=== PATIENT | female | born 1990 | race Asian ===

== ENCOUNTER 2024-07-04 12:05 | Outpatient (CLI) | payer BC, SELFPAY ==
--- NOTE | 2024-07-04 12:15 | CRLHL7_ITS ---
For Patients: As a result of the Century Cures Act, medical imaging exams and procedure reports are released immediately into your electronic medical record. You may view this report before your referring provider. If you have questions, please contact your health care provider. OBSTETRICAL ULTRASOUND FIRST TRIMESTER, 07/04/2024 CLINICAL INDICATION: Dating and viability. LMP: 05/02/2024 CARLOS ALBERTO by LMP: 02/06/2025 Gestational age: 9 weeks 0 days TECHNIQUE: Real-time carvalho-scale imaging of the fetus was performed transabdominal. FINDINGS: CRL: 21 cm, 8 weeks 5 days; CARLOS ALBERTO 02/08/2025 heart rate: 185 BPM, then 176 BPM Gestational sac: 4.3 cm, appears within normal limits Yolk sac: 2.8 mm, appears within normal limits Right ovary: Within normal limits; 2.8 x 1.7 x 2 cm Left ovary: Within normal limits; 3.3 x 1.8 x 2.1 cm, CL COMMENT: Left ovary corpus luteum 2 x 1.5 x 1.9 cm. IMPRESSION: 1. Single living intrauterine with sonographic gestational age of 8 weeks 5 days and a sonographic due date of 02/08/2025. 2. Subchorionic hemorrhage is present measuring 1.7 x 1.7 x 3.1 cm. LUIS EDUARDO MCCLAIN M.D. Diagnostic Radiologist [email or web address] Transcribed: 11:[address]/Dictated by: Luis Eduardo Mcclain MD @ 07/06/2024 8:50:00 PM (Electronically Signed)
== END 2024-07-04 12:06 | disposition home or self-care (01) ==
LOC: US 12:05
PROVIDERS: Visit Provider Registered Nurse
DX: Z34.91 Encounter for supervision of normal pregnancy, unspecified, first trimester (principal); O20.9 Hemorrhage in early pregnancy, unspecified; Z3A.08 8 weeks gestation of pregnancy
CPT/HCPCS: 76801; 82565; 82570; 83020; 83021; 84156; 84450; 84460; 84520; 86592; 86703; 86704; 86706; 86762; 86787; 86803; 86850; 86900; 86901; 87086; 87340; 87491; 87591; 87624; 88142

== ENCOUNTER 2024-07-04 13:02 | Outpatient (CLI) | payer BC, SELFPAY ==
[2024-07-04 22:29] LABS: Chlamydia DNA Amplified* NOT DETECTED (No Detected); GC DNA Amplified* NOT DETECTED (No Detected)
[2024-07-06 15:00] LABS: HPV Source Cervix; HPV, High Risk by TMA Not Detected
== END 2024-07-04 13:03 | disposition home or self-care (01) ==
PROVIDERS: Visit Provider Registered Nurse
DX: Z34.91 Encounter for supervision of normal pregnancy, unspecified, first trimester (principal); O20.9 Hemorrhage in early pregnancy, unspecified; Z3A.08 8 weeks gestation of pregnancy; Z12.4 Encounter for screening for malignant neoplasm of cervix
CPT/HCPCS: 82565; 82570; 83020; 83021; 84156; 84450; 84460; 84520; 85660; 86592; 86703; 86704; 86706; 86762; 86787; 86803; 86850; 86900; 86901; 87086; 87340; 87491; 87591; 87624; 87625; 88141; 88142

== ENCOUNTER 2024-07-30 08:47 | Outpatient (CLI) | payer BC, SELFPAY | END 2024-07-30 08:48 | disposition home or self-care (01) | LOC: NFLDREF 07-31 22:42 | PROVIDERS: Visit Provider Obstetrics & Gynecology | DX: O09.291 Supervision of pregnancy with other poor reproductive or obstetric history, first trimester (principal); R89.9 Unspecified abnormal finding in specimens from other organs, systems and tissues; Z3A.12 12 weeks gestation of pregnancy | CPT/HCPCS: 84450; 84460 ==

== ENCOUNTER 2024-09-10 07:18 | Outpatient (CLI) | payer BC, SELFPAY | END 2024-09-10 07:19 | disposition home or self-care (01) | LOC: US 07:18 | PROVIDERS: Visit Provider Registered Nurse | DX: O09.292 Supervision of pregnancy with other poor reproductive or obstetric history, second trimester (principal); Z3A.18 18 weeks gestation of pregnancy | CPT/HCPCS: 76811; 76817 ==

== ENCOUNTER 2024-09-23 09:23 | Outpatient (CLI) | payer BC, SELFPAY | END 2024-09-23 09:24 | disposition home or self-care (01) | LOC: NFLDREF 09-26 09:52 | PROVIDERS: Visit Provider Obstetrics & Gynecology | DX: O09.292 Supervision of pregnancy with other poor reproductive or obstetric history, second trimester (principal); Z3A.20 20 weeks gestation of pregnancy | CPT/HCPCS: 85520; 85525; 85598; 85610; 85613; 85670; 85730; 86146; 86147 ==

== ENCOUNTER 2024-11-03 08:16 | Outpatient (CLI) | payer BC, SELFPAY ==
--- NOTE | 2024-11-03 08:15 | CRLHL7_ITS ---
For Patients: As a result of the Century Cures Act, medical imaging exams and procedure reports are released immediately into your electronic medical record. You may view this report before your referring provider. If you have questions, please contact your health care provider. INDICATION: IUGR TECHNIQUE: Ultrasound OB pelvis transabdominal. Real-time carvalho-scale imaging of the fetus was performed without stress testing. Umbilical artery Dopplers were performed with color and spectral evaluation. COMPARISON: Ultrasound abdomen 09/10/2024 FINDINGS: Sonographic imaging demonstrates a single living intrauterine gestation. Fetus demonstrates a regular cardiac rate of 141 beats per minute. Fetus has a cephalic orientation. Biometric measurements: Biparietal diameter: 37th percentile. Head circumference: 7.1 percentile. Abdominal circumference: 8.1 percentile. Femur length: 14.3 percentile. Estimated weight: 800 grams, 8.2 percentile. Estimated ultrasound age by today`s measurements is 25 weeks, 5 days. Amniotic fluid volume appears normal, with single deepest pocket measuring 4.5 centimeters. motion, and tone were all observed. breathing movements were not visualized. Cervix is normal and closed measuring 4.4 centimeters. Umbilical artery Doppler demonstrates normal waveforms with S/D ratio of 4.0. IMPRESSION: Moreira intrauterine in cephalic presentation. Cardiac activity is present. Estimated gestational age 26 weeks, 3 days by LMP concordant with biometry. There has been interval growth, but estimated weight is now at 8.2 percentile and abdominal circumference now at 8.1 percentile, consistent with IUGR. Head circumference is 7.1 percentile normal umbilical artery Doppler with S/D ratio within normal limits for age. Biophysical profile score is 6/8 without visualized respiratory activity. Dictated by Dorina German MD @ 11/03/2024 9:42:33 AM (Electronically Signed)
== END 2024-11-03 08:17 | disposition home or self-care (01) ==
LOC: US 08:17
PROVIDERS: Visit Provider Obstetrics & Gynecology
DX: O36.5920 Maternal care for other known or suspected poor fetal growth, second trimester, not applicable or unspecified (principal); Z3A.26 26 weeks gestation of pregnancy
CPT/HCPCS: 76816; 76819; 76820

== ENCOUNTER 2024-11-11 08:16 | Outpatient (CLI) | payer BC, SELFPAY ==
--- NOTE | 2024-11-11 08:15 | CRLHL7_ITS ---
For Patients: As a result of the Cures Act, medical imaging exams and procedure reports are released immediately into your electronic medical record. You may view this report before your referring provider. If you have questions, please contact your health care provider. OB ULTRASOUND LIMITED, 11/11/2024 CLINICAL HISTORY: IUGR. COMPARISON: 11/03/2024, 09/10/2024, 07/04/2024. TECHNIQUE: Real time carvalho scale imaging of the fetus was performed. Transabdominal imaging performed. FINDINGS: LMP: 05/02/2024. CARLOS ALBERTO by LMP: 02/06/2025. GA: 27 weeks, 4 days. Gestation: Single. Cervix: Visualized. Transabdominal measurement 3.4 cm. Positioning: Vertex. Amniotic Fluid: 17.3 cm JUNE. 5.7 cm SDP. Placenta: TA. Placenta Position: Posterior. Dopplers: Heart Rate: 134 bpm. Umbilical Artery 4.2 S/D. IMPRESSION: 1. Umbilical artery S/D ratio 4.2, within normal limits. 2. Amniotic fluid single deepest pocket 5.7 cm. JUNE 17.3 cm. Luis Eduardo White M.D. Diagnostic Radiologist [email or web address] Transcribed: 10:43 am DW/Dictated by: Luis Eduardo White MD @ 11/11/2024 9:39:00 AM (Electronically Signed)
== END 2024-11-11 08:17 | disposition home or self-care (01) ==
LOC: US 08:17
PROVIDERS: Visit Provider Obstetrics & Gynecology
DX: O36.5920 Maternal care for other known or suspected poor fetal growth, second trimester, not applicable or unspecified (principal); Z3A.27 27 weeks gestation of pregnancy
CPT/HCPCS: 76815; 76820

== ENCOUNTER 2024-11-11 10:04 | Outpatient (CLI) | payer BC, SELFPAY ==
[2024-11-11 10:10] VITALS: RESP 16; TEMP 36.8
[2024-11-11 10:24] VITALS: PULSE 77; O2SAT 99
[2024-11-11 10:27] VITALS: BP 106/67; PULSE 80
--- NOTE | 2024-11-11 12:34 | PC.OBNST ---
NST Note NST Note Start: 11/11/24 10:10 Freq: ONCE Status: Active Protocol: Document 11/11/24 12:33 BAW (Rec: 11/11/24 12:34 BAW No Response) NST Note 8 Para (# of births) 3 EDC 02/06/25 Gestational Age In 27 Weeks & 4 Days Weeks & Days High Risk Factors History of Labor/Delivery,History of /Stillborn Patient Presented Other with Complaint(s) of Other Complaints non reassuring NST in the clinic Reactive Yes Appropriate for Yes Gestational Age MARGUERITE Dietz RNC Date 11/11/24 Reactive Yes Appropriate for Yes Gestational Age MARGUERITE Espinoza RN Date 11/11/24 OB NST charge Yes Complete NST Note Yes via Write Note The provider's electronic signature indicates the NST is reactive/appropriate for gestational age. *Note to provider: If an addendum is required, open the patient's chart and click on the note under the Nurse/Allied Health tab.
== END 2024-11-11 12:18 | disposition home or self-care (01) ==
LOC: OB OUT 10:05 → OB 10:05
PROVIDERS: Visit Provider Obstetrics & Gynecology
DX: O36.5920 Maternal care for other known or suspected poor fetal growth, second trimester, not applicable or unspecified (principal); O09.212 Supervision of pregnancy with history of pre-term labor, second trimester; Z3A.27 27 weeks gestation of pregnancy
CPT/HCPCS: 59025; 76815; 76820; G0463

== ENCOUNTER 2024-11-18 09:48 | Outpatient (CLI) | payer BC, SELFPAY | END 2024-11-18 09:49 | disposition home or self-care (01) | LOC: NFLDREF 11-21 15:24 | PROVIDERS: Visit Provider Obstetrics & Gynecology | DX: O36.5930 Maternal care for other known or suspected poor fetal growth, third trimester, not applicable or unspecified (principal) | CPT/HCPCS: 86592 ==

== ENCOUNTER 2024-11-18 09:51 | Outpatient (CLI) | payer BC, SELFPAY ==
--- NOTE | 2024-11-18 10:00 | CRLHL7_ITS ---
For Patients: As a result of the Century Cures Act, medical imaging exams and procedure reports are released immediately into your electronic medical record. You may view this report before your referring provider. If you have questions, please contact your health care provider. OB ULTRASOUND FOLLOW-UP/LIMITED, 11/18/2024 CLINICAL HISTORY: IUGR. COMPARISON: 11/11/2024. TECHNIQUE: Real time carvalho scale imaging of the fetus was performed. Transabdominal imaging performed. Umbilical artery spectral Doppler evaluation performed. FINDINGS: LMP: 05/02/2024. CARLOS ALBERTO by LMP: 02/06/2025. GA: 28 weeks 4 days. Cervix: Not visualized. Positioning: Vertex. Amniotic Fluid: 5.4 cm SDP. Placenta: Technique: TA. Placenta Position: Posterior. Dopplers: Heart Rate: 173 bpm. IMPRESSION: 1. Spectral Doppler evaluation of the umbilical artery performed. Normal S/D ratio of 2.9. 2. Amniotic fluid single deepest pocket 5.4 cm. Luis Eduardo White M.D. Diagnostic Radiologist [email or web address] Transcribed: 1:37 pm DW/Dictated by: Luis Eduardo White MD @ 11/18/2024 12:43:00 PM (Electronically Signed)
== END 2024-11-18 09:52 | disposition home or self-care (01) ==
LOC: US 09:51
PROVIDERS: Visit Provider Obstetrics & Gynecology
DX: O36.5930 Maternal care for other known or suspected poor fetal growth, third trimester, not applicable or unspecified (principal); Z3A.28 28 weeks gestation of pregnancy
CPT/HCPCS: 76815; 76820

== ENCOUNTER 2024-11-26 12:11 | Outpatient (CLI) | payer BC, SELFPAY | END 2024-11-26 12:12 | disposition home or self-care (01) | LOC: US 12:11 | PROVIDERS: Visit Provider Obstetrics & Gynecology | DX: O36.5930 Maternal care for other known or suspected poor fetal growth, third trimester, not applicable or unspecified (principal); Z3A.29 29 weeks gestation of pregnancy | CPT/HCPCS: 76816 ==

== ENCOUNTER 2024-12-10 12:07 | Outpatient (CLI) | payer BC, SELFPAY ==
--- NOTE | 2024-12-10 12:15 | CRLHL7_ITS ---
For Patients: As a result of the Cures Act, medical imaging exams and procedure reports are released immediately into your electronic medical record. You may view this report before your referring provider. If you have questions, please contact your health care provider. OB ULTRASOUND FOLLOW-UP/LIMITED, 12/10/2024 CLINICAL HISTORY: History FGR. Follow-up growth. COMPARISON: 11/18/2024, 11/11/2024, 11/03/2024. TECHNIQUE: Real time carvalho scale imaging of the fetus was performed. Transabdominal imaging performed. FINDINGS: LMP: 05/02/2024. CARLOS ALBERTO by LMP: 02/06/2025. GA: 31 weeks 5 days. Gestation: Single. Cervix: Not visualized. Positioning: Vertex. Amniotic Fluid: 6.4 cm SDP. Placenta: Technique: TA. Placenta Position: Posterior. Dopplers: Heart Rate: 141 bpm. BIOMETRY BPD: 7.8 cm, 31 weeks 3 days. 31% HC: 28.3 cm, 31 weeks 0 days. 6% AC: 26.7 cm, 30 weeks 6 days. 22% FL: 5.9 cm, 30 weeks 4 days. 12% FL/AC Ratio: 21.95% HC/AC Ratio: 1.06. EFW: 1644 grams, 3 lb 10 oz. Age by this US: 31 weeks 0 days. CARLOS ALBERTO by this US: 02/11/2025. Percentile by CARLOS ALBERTO: 15% IMPRESSION: 1. Sonographic gestational age 31 weeks 0 days and sonographic due date 02/11/2025. Sonographic age is 5 days behind the clinical age. 2. Estimated weight 15th percentile. Abdominal circumference 22nd percentile. Head circumference 6th percentile. Luis Eduardo White M.D. Diagnostic Radiologist [email or web address] Transcribed: 2:42 pm DW/Dictated by: Luis Eduardo White MD @ 12/10/2024 2:23:00 PM (Electronically Signed)
== END 2024-12-10 12:08 | disposition home or self-care (01) ==
LOC: US 12:08
PROVIDERS: Visit Provider Obstetrics & Gynecology
DX: O36.5930 Maternal care for other known or suspected poor fetal growth, third trimester, not applicable or unspecified (principal); Z3A.31 31 weeks gestation of pregnancy
CPT/HCPCS: 76816

== ENCOUNTER 2025-01-05 08:08 | Outpatient (CLI) | payer BC, SELFPAY ==
--- NOTE | 2025-01-05 08:15 | CRLHL7_ITS ---
For Patients: As a result of the Century Cures Act, medical imaging exams and procedure reports are released immediately into your electronic medical record. You may view this report before your referring provider. If you have questions, please contact your health care provider. OB ULTRASOUND FOLLOW-UP/LIMITED, 01/05/2025 CLINICAL HISTORY: History of IUGR, EFW. TECHNIQUE: Real time carvalho scale imaging of the fetus was performed. Transabdominal imaging performed. FINDINGS: CARLOS ALBERTO by LMP: 02/06/2025. GA: 35 weeks 3 days. Gestation: Single. Cervix: Not visualized. Positioning: Vertex. Amniotic Fluid: 3.70 cm SDP. Placenta: Technique: TA. Placenta Position: Posterior. Dopplers: Heart Rate: 138 bpm. BIOMETRY BPD: 8.38 cm, 33 weeks 5 days. 12.0% HC: 30.43 cm, 33 weeks 6 days. <3% AC: 31.19 cm, 35 weeks 1 day. 49.3% FL: 6.65 cm, 34 weeks 2 days. 15.9% FL/AC Ratio: 21.32% HC/AC Ratio: 0.98. EFW: 2470 grams, 5 lb 7 oz. age by this US: 34 weeks 1 day. CARLOS ALBERTO by this US: 02/15/2025. Percentile by CARLOS ALBERTO: 26.1% IMPRESSION: 1. Sonographic gestational age 34 weeks 1 day with sonographic due date 02/15/2025. Sonographic age is 9 days behind the clinical age. 2. Estimated weight 26th percentile. Abdominal circumference 49th percentile. Head circumference less than 3rd percentile. Luis Eduardo White M.D. Diagnostic Radiologist [email or web address] Transcribed: 10:01 am DW/Dictated by: Luis Eduardo White MD @ 01/05/2025 9:42:00 AM (Electronically Signed)
== END 2025-01-05 08:09 | disposition home or self-care (01) ==
LOC: US 08:09
PROVIDERS: Visit Provider Advanced Practice Midwife
DX: O09.293 Supervision of pregnancy with other poor reproductive or obstetric history, third trimester (principal); O36.63X0 Maternal care for excessive fetal growth, third trimester, not applicable or unspecified; Z3A.35 35 weeks gestation of pregnancy
CPT/HCPCS: 76816

== ENCOUNTER 2025-01-16 09:06 | Outpatient (CLI) | payer BC, SELFPAY ==
[2025-01-17 13:46] LABS: Strep B DNA Probe Negative (Negative)
[2025-01-17 13:51] LABS: Strep B Susceptibility Needed? No
== END 2025-01-16 09:07 | disposition home or self-care (01) ==
LOC: NFLDREF 09:06
PROVIDERS: Visit Provider Advanced Practice Midwife
DX: Z34.93 Encounter for supervision of normal pregnancy, unspecified, third trimester (principal)
CPT/HCPCS: 87081; 87653

== ENCOUNTER 2025-01-23 12:58 | Outpatient (CLI) | payer BC, SELFPAY ==
--- NOTE | 2025-01-23 13:00 | CRLHL7_ITS ---
For Patients: As a result of the Cures Act, medical imaging exams and procedure reports are released immediately into your electronic medical record. You may view this report before your referring provider. If you have questions, please contact your health care provider. INDICATION: History of intrauterine growth restriction TECHNIQUE: Ultrasound OB pelvis transabdominal. Real-time carvalho-scale imaging of the fetus was performed as well as color Doppler and spectral Doppler analysis of the umbilical artery. COMPARISON: Ob ultrasound January 05, 2025 FINDINGS: Sonographic imaging demonstrates a single living intrauterine gestation. Fetus demonstrates a regular cardiac rate of [id number] beats per minute. Fetus has a vertex orientation. The placenta lies posterior without evidence of placenta previa. Amniotic fluid volume appears normal with single deepest pocket measuring 4.5 centimeters the cervix is not visualized.. The following biometric measurements were obtained: Biparietal diameter: 8.8 centimeters, 35 weeks 4 days. Head circumference: 31.5 centimeters, 35 weeks 2 days. Abdominal circumference: 33.2 centimeters, 37 weeks 1 day. Femur length: 7.2 centimeters, 37 weeks 0 days. The composite ultrasound gestational age is calculated at 36 weeks 2 days with an estimated sonographic due date of February 18, 2025. The weight is estimated at 3005 grams, the 28.6 percentile. There is adequate diastolic blood flow within the umbilical artery. IMPRESSION.: Single live intrauterine gestation measuring 36 weeks 2 days by ultrasound measurements, somewhat discordant for gestational age by last menstrual period of 38 weeks 0 days. Findings may represent mild intrauterine growth restriction. Dictated by Axel Chauhan MD @ 01/23/2025 2:05:24 PM (Electronically Signed)
== END 2025-01-23 12:59 | disposition home or self-care (01) ==
LOC: US 12:58
PROVIDERS: Visit Provider Obstetrics & Gynecology
DX: O36.8330 Maternal care for abnormalities of the fetal heart rate or rhythm, third trimester, not applicable or unspecified (principal); Z3A.38 38 weeks gestation of pregnancy
CPT/HCPCS: 76816

== ENCOUNTER 2025-01-23 14:12 | Outpatient (CLI) | payer BC, SELFPAY ==
[2025-01-23] VITALS (7 sets, daily range): BP systolic 119; BP diastolic 81; PULSE 76–95; RESP 22; TEMP 36.6; O2SAT 90–100
[2025-01-23] MEDS: LACTATED RINGERS 1000 ML 1,000 ML IV (15:10)
--- NOTE | 2025-01-23 16:19 | P.OBLDTN_ITS ---
OB - Triage/Final Diagnosis Visit Information Date Seen: 01/23/25 Narrative: The patient is a 34 year old 8 para 2 at 38.0 weeks gestation by LMP, who was sent over from clinic after baby having elevated HR on NST. Initially on admit FHR was elevated in 170s with moderate variability, accels, and what appears to be a couple of variables to the 150s. At 1443 she was repositioned onto her L side and FHR transitioned to 150s with mod nav and accels, no decels. At 1550 baby moved in utero and after finding FHR the baseline is now 130s with mod nav, + accels, and no decels. Sylvia was given a 1 L bolus of LR. Sylvia is having a few ctx, but they aren't uncomfortable. She declines a SVE and would like to await for spontaneous labor. She feels reassured with the FHR at this time and feels comfortable going home. She does not yet have another PN appt scheduled, but I recommended she make one just in case she doesn't go into labor. No further questions or concerns at this time. Discussed movement and that is a good indicator of well being. Reports baby is quite active and she doesn't have any concerns RE movement. Reason for evaluation: other Evaluation Vital signs: Vital Signs - 24 hr 01/23/25 14:22 01/23/25 14:23 01/23/25 14:52 Temperature 97.9 F Pulse Rate 83 Respiratory Rate 22 Blood Pressure 119/81 Pulse Oximetry 100 99 01/23/25 15:53 01/23/25 15:58 01/23/25 15:58 Temperature Pulse Rate Respiratory Rate Blood Pressure Pulse Oximetry 99 90 90 01/23/25 16:03 01/23/25 16:03 01/23/25 16:08 Temperature Pulse Rate Respiratory Rate Blood Pressure Pulse Oximetry 93 93 100 Fetus (Single) Heart Rate Baseline: 130 Internal Affairs Investigator Variability: Moderate (6-25) Monitor Accelerations: Present Monitor Decelerations: Variable Final Diagnosis (1) Supervision of high risk in third trimester: Status: Acute (2) tachycardia: Status: Acute Problem details: resolved after fluids and extended monitoring Total Time Spent Total Time Spent: 30 min
--- NOTE | 2025-01-23 16:56 | PC.OBNST ---
NST Note NST Note Start: 01/23/25 14:17 Freq: ONCE Status: Active Protocol: Document 01/23/25 16:45 M (Rec: 01/23/25 16:54 M [id number]) NST Note 8 Para (# of births) 2 EDC 02/06/25 Gestational Age In 38 Weeks & 0 Days Weeks & Days High Risk Factors History of Labor/Delivery Patient Presented Other with Complaint(s) of Other Complaints Patient was seen in clinic this morning, and heart rate baseline was consistently elevated to 180 bpm/190 bpm. Patient was brought to the center for further monitoring. Michael Castillo CNM reviewed heart tracing after monitoring and confirmed patient was able to discharge. Reactive Yes Appropriate for Yes Gestational Age MARGUERITE Fraire RN Date 01/23/25 Reactive Yes Appropriate for Yes Gestational Age MARGUERITE Dill RN Date 01/23/25 OB NST charge Yes Complete NST Note Yes via Write Note The provider's electronic signature indicates the NST is reactive/appropriate for gestational age. *Note to provider: If an addendum is required, open the patient's chart and click on the note under the Nurse/Allied Health tab.
== END 2025-01-23 16:30 | disposition home or self-care (01) ==
LOC: OB OUT 14:13 → OB 14:13
PROVIDERS: Visit Provider Midwife, Lay
DX: O36.8330 Maternal care for abnormalities of the fetal heart rate or rhythm, third trimester, not applicable or unspecified (principal); Z3A.38 38 weeks gestation of pregnancy
CPT/HCPCS: 59025; G0463; J7120

== ENCOUNTER 2025-02-12 19:27 | Inpatient (IN) | payer BC, SELFPAY ==
[2025-02-12] VITALS (15 sets, daily range): BP systolic 105–136; BP diastolic 63–84; PULSE 68–106; RESP 16; TEMP 36.6; O2SAT 97; BMI 32.0
[2025-02-12 19:24] LABS: Amnisure Rom* POSITIVE
--- NOTE | 2025-02-12 21:07 | P.OBHP_ITS ---
OB - H&P: HPI Labor/Induction History of Present Illness Time Seen by Provider: 20:10 Date Seen: 02/12/25 Chief Complaint: Patient is being admitted to Labor and Delivery for SROM.? She is a 34 year old at 40 Weeks, 6 Days gestation.? Her full history and physical was dictated by Jonelle Burger CNM on 01/16/2025.? Please see this for details.?? Chief complaint: maternity : 8 Para: 2 Date of last menstrual period: 05/02/24 Estimated date of delivery: 02/06/25 Gestational age based on last menstrual period: 40 Narrative: Sylvia Nix is a 34 year old female Specific Issues/Plans G 8 P 1152 : Lewis Rodriguez (5) and Mac (2) H&P: by Emmanuel Burger CNM on 01/16/25 # Suspected growth restriction, RESOLVED History of growth restriction. 3lb 15oz at 34 weeks. 20 week level 2 US as below weekly testing starting at 26 weeks: Modified BPP, UA doppler. 26 weeks: EFW 8.2%, AC 8.1%. FGR resolved at 30wk US: 21%ile; [facility] recommended continuing EFW in 2 weeks 32 week EFW: 15%, per MFM if EFW or AC <10% then restart testing w/wkly JUNE, UA doppler & NST. If no evidence of FGR at 32 weeks then continue Q3wk USN for EFW growth US every 3 weeks starting at 26 weeks # History of severe preeclampsia. Induced at 34 weeks. baseline pre E labs: AST slightly elevated. 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 Elected to terminate, but heartbeat stopped before delivery. MFM consult as below # Placental abruption with 34 week delivery # Traumatic delivery with 15 week loss (first ). Delivered in the ED. Much of the labor without pain management. # History of anxiety. Took Zoloft in the past. Didn't find it helpful. Feels she is managing her mood well. Has seen therapists in past. # Asthma # Adopted. Unknown family medical history. # Decreased hemoglobin A2: Hematology: [facility] note reviewed and shows the following: Reasonable to check iron indices to rule out iron deficiency which can cause hemoglobin A2 proportion to decrease. Reasonable to check alpha globin gene analysis at some point in the future, but with her hemoglobin being normal even if she has alpha-thalassemia, it would most likely be an alpha thalassemia trait anyways. Alpha globin gene analysis is often not covered by insurance. Results would not change what we do. No further workup needed at this time. No need for closer monitoring during due to this lab finding. I do not think this is the cause of her recurrent losses. Imaging: Anatomy US (09/10/2024): Impression: 1. Moreira intrauterine at 18w 5d gestational age. 2. None of the anomalies commonly detected by ultrasound were evident in the detailed anatomic survey described above. 3. Growth parameters and estimated weight were consistent with appropriate for gestational age pattern of growth. 4. The amniotic fluid volume appeared normal. Recommendation: Additional monitoring is indicated during given Sylvia's OB history and recommend serial growth US every 4 weeks starting at 26 weeks and weekly BPP at 32 weeks, which I anticipate will be scheduled with [facility] and recommend weekly OB visits at 32 weeks as well to closely monitor blood pressure. Delivery is recommended at 39 weeks if not clinically indicated sooner. 11/03/24: 26 weeks, 3 days. EFW 8.2%. AC 8.1%. BPD 37%, HC 7.1%, FL 14.3%. SDP 4.5 cm. UA Doppler normal. BPP 6/8, missing 2 for breathing. 11/26/24 MFM consult for FGR: Impression: 1. Moreira intrauterine at 29w 5d gestational age. 2. None of the anomalies commonly detected by u ltrasound were evident in the anatomic survey described above. 3. Growth parameters and estimated weight were consistent with appropriate for gestational age pattern of growth. 4. The amniotic fluid volume appeared normal. Recommendation: We reviewed that there has been resolution of the previously noted growth restriction. Given this, can plan to forego surveillance at this time and recommend repeat assessment of growth and anatomy in 2 weeks, which can be scheduled at [facility]. If EFW and AC are both > 10th percentile (i.e., not growth restricted), then recommend continued serial growth US every 3 weeks, which can also be scheduled with [facility]. Certainly if there recurrence of FGR, then recommend re- initiation of weekly NST/UA Doppler surveillance and recommend repeat US with [facility] for further discussion and recommendations. 12/10/24: Vertex, S DP: 6.4 cm, BPD: 31 percentile, HC: 6 percentile, AC: 22 percentile, FL: 12 percentile. EFW: 1644 g, 15th percentile. 01/05/25 Growth US: IMPRESSION: 1. Sonographic gestational age 34 weeks 1 day with sonographic due date 02/15/2025. Sonographic age is 9 days behind the clinical age. 2. Estimated weight 26th percentile. Abdominal circumference 49th percentile. Head circumference less than 3rd percentile. Flu: recommended, declined 01/16/2025 Covid: recommended, declined 01/16/2025 Tdap:declined History of Present Dating criteria: based on LMP care: good care Ultrasounds: normal 1st trimester US and abnormal US findings Abnormal ultrasound findings: growth restriction suspected at 26wks, followed serially and resolved at 35 wks. Medical complications: none Labs Blood type: B (+) positive Rubella: immune (borderline immunity) RPR/VDLR: nonreactive GBS status: negative HBsAG: negative Review of Systems Status of ROS: Reports: 6 or more systems reviewed and unremarkable except as noted in History and below Meds Home Medications and Allergies Home Medications ?Medication ?Instructions ?Recorded ?Confirmed ?Type aspirin 81 mg chewable tablet 81 mg PO QDAY 09/23/24 1 04/14/24 History docosahexaenoic acid 200 mg 200 mg PO DAILY 09/23/24 1 04/14/24 History capsule ( DHA) Allergies Allergy/AdvReac Type Severity Reaction Status Date / Time No Known Drug Allergies Allergy Verified 02/12/25 18:57 OB - H&P: Exam Physical Exam: Vital signs: Temp Pulse Resp BP Pulse Ox 97.9 F 87 16 130/74 97 02/12/25 20:18 02/12/25 20:55 02/12/25 19:00 02/12/25 20:55 02/12/25 19:00 Narrative: Vitals per EMR? Psychiatric:? Alert and oriented x3? HEENT:? Normocephalic, atraumatic? Neck:? Supple without adenopathy or thyromegaly? Lungs:? Clear to auscultation bilaterally? Heart:? Regular rate and rhythm, no murmur, rub or gallop? Abdomen:? Soft, nontender, and gravid? Extremities:? No edema or erythema? Pelvic:? SVE: 6-7cm/90%/-1? Membrane status:? ruptured @ ~1500?today presentation:? vertex? FHT:? Moderate Variability.? Positive Accels.? No Decels. Baseline 140.? [place]:? Ctx 3 in 10 min? OB - Problem Based A/P Additional Plan (1) Supervision of high risk in third trimester: Status: Acute (2) Spontaneous rupture of membranes: Status: Acute Plan ASSESSMENT:? at 40+6 weeks gestation? GBS negative? Complicated OB hx, this ?complicated by suspected IUGR which resolved. Blood type:?B+ ?? PLAN:? 1. Desires water . Consent signed. Hep C negative.? 2. Candidate for analgesia of choice. Planning unmedicated .? 3. Monitor blood pressure per protocol.? 4. Anticipate ? 5. Expectant management at this time.?Pt to use breast pump to stimulate contractions. 6. Monitoring plan: intermittent auscultation per protocol. ? Delivery/Labor/Induction Plan Plan: expectant management
[2025-02-12] MEDS: IBUPROFEN 600 MG TABLET PO (21:13)
--- NOTE | 2025-02-12 21:34 | W.PM.OBVAGDE ---
OB Procedure Vag Delivery Mother Details Mother Details: The patient is a 34 year-old, 8, Para 2, admitted on 02/12/25 at 40w6d gestation. : 8 Para: 2 Weeks Gestation: 40.8 Admission Date: 02/12/25 Additional Details Amniotic Membrane Status: SROM Amniotic Membrane Rupture Date: 02/12/25 Amniotic Membrane Rupture Time: 15:00 Amniotic Membrane Fluid Description: Clear Analgesia/Anesthesia Type: None Waterbirth: Yes Pitcoin: No Intrapartal Events: None Labor Onset: 20:15 Complete: 20:38 Pushin:38 Heart: heart tones during second stage were reassuring per owen. Delivery Details Delivery Date: 02/12/25 Delivery Time: 20:44 Route of delivery: Gender: Female Infant Viability: Alive; Heart Rate Present Position at Delivery: OA Delivery Details: Patient was admitted for SROM and progressed normally after augmentation with breast pump. Clear fluid. Patient was complete at 2037 and pushing at 2037. of a viable female at 2043 in hands and knees position in the tub. Vertex delivered OA. No nuchal cord or shoulder. Body delivered easily and without incident. Infant passed to mothers abdomen with a vigorous cry. Cord was clamped and cut at > 5 minutes. APGARS were 8 at one minute and 9 at five minutes respectively. Mouth was bulb suctioned. Intact placenta with a 3 vessel cord delivered spontaneously at 2051. Fundus firm. Perineum intact. EBL 300 cc. Mother and baby stable; mother plans to breastfeed. Infant weight pending.? 1 Minute Interval Total Score: 8 5 Minute Interval Total Score: 9 Additional Details Shoulder Dystocia: No Placenta Delivery Time: 20:52 Placental Delivery Description: Spontaneous Procedure Done: Global Blood Loss: 300 Laceration: None Episiotomy Description: None Blood Loss Measurement Type: EBL Bakri Used: No Sponge/Need Count Correct: Yes Cord Vessel Description: 3 Vessels Event Summary Status: Mother and infant were stable after delivery. Disposition: floor
[2025-02-12] MEDS: ACETAMINOPHEN 500 MG TABLET 1000 MG PO (22:10)
[2025-02-13] VITALS (19 sets, daily range): BP systolic 95–145; BP diastolic 51–90; PULSE 68–120; RESP 16–22; TEMP 36.7–37.3; O2SAT 97–100
[2025-02-13] MEDS: LACTATED RINGERS 1000 ML 1,000 ML IV (00:57)
[2025-02-13] MEDS: OXYTOCIN 30 unit/500 ML in NS 30 UNIT/500 ML BAG 300 UNIT IVPB (00:58)
[2025-02-13 05:36] LABS: Hemoglobin* 9.1 gm/dL (12.0-16.0)
[2025-02-13] MEDS: IBUPROFEN 600 MG TABLET PO ×2 (08:38→20:38)
--- NOTE | 2025-02-13 11:58 | PM.OBPNVD1 ---
OB - PN:Subj Subjective Date Seen: 02/13/25 Patient comments OB post-: no complaints, pain well controlled, tolerating diet and flatus present [place] status: and doing well [place] feeding status: exclusively Narrative: Sylvia?feels well.??Her?pain is well controlled with current medications.??She has no new complaints.??Urinary output is?adequate?and she is voiding without difficulty.??Has?a good appetite, is tolerating a general diet, is passing flatus, and has?not?had a bowel movement.?She?is ambulating?well.?Has?scant?amount?of rubra lochia since the Pitocin infusion was completed.??Hgb decreased to 9.1 so will start a PO iron supplement. States that her delivery was very fast and she felt out of control for part of it but overall it was a good delivery. OB - PN: Obj Exam Physical Exam: Vital signs: Temp Pulse Resp BP Pulse Ox O2 Del Method 99.1 F 99 16 117/79 98 Room Air 02/13/25 08:16 02/13/25 08:16 02/13/25 08:16 02/13/25 08:16 02/13/25 08:16 02/13/25 08:16 Narrative: GENERAL APPEARANCE:? normal?affect, alert, no distress? MOOD:? appropriate? CHEST:? clear?to auscultation and percussion? HEART:? regular?rate and rhythm? BREASTS: soft, nontender, no erythema, nipples intact? ABDOMEN:? soft, non-tender?the uterine?fundus is?U/2?and is?appropriate for?the stage of recovery.? PERINEUM:? mild?edema of the perineum, there is?a?intact perineum?that?is healing?well.? EXTREMITIES:? normal?and no edema? OB - PN: Obj Data Labs Labs: Laboratory Results - last 24 hr 02/12/25 02/13/25 18:55 05:30 Hgb 9.1 L Membrane Rupture POSITIVE OB - PN: A/P Delivery Assessment and Plan (1) Lactating mother: Status: Acute (2) care following vaginal delivery: Status: Acute (3) History of pre-eclampsia: Status: Acute (4) Anxiety, generalized: Status: Acute (5) Anemia, : Status: Acute Plan day: 1 Plan: routine care Comments: Anticipate discharge home tomorrow.
[2025-02-13] MEDS: FERROUS SULFATE 325 MG TABLET PO (19:55)
[2025-02-14 00:27] VITALS: BP 115/71; PULSE 86; RESP 16; O2SAT 98
--- NOTE | 2025-02-14 08:33 | P.DS_ITS ---
DS: Providers Provider Date Seen: 02/14/25 Date of admission: 02/12/25 19:27 Primary care physician: Not a Local Provider Admitting Clinician: Jeni Hernandez CNM Attending Physician on discharge: Pippa Brown APRN, CNM DS: Diagnosis Discharge Diagnosis (1) care following vaginal delivery: Status: Acute (2) Lactating mother: Status: Acute (3) Anemia, : Status: Acute (4) Anxiety, generalized: Status: Acute Exam Narrative: Exam Narrative: GENERAL APPEARANCE:? normal affect, alert, no distress MOOD:? appropriate CHEST:? clear to auscultation HEART:? regular rate and rhythm ABDOMEN:? soft, non-tender the uterine fundus is At Umbilicus, Midline and is appropriate for the stage of recovery. PERINEUM:? mild edema of the perineum. EXTREMITIES:? normal and no edema Const: Vital Signs, click to edit/add: Vital Signs - 24 hr 02/13/25 12:01 02/13/25 17:11 02/14/25 00:27 Temperature 98.3 F 98.1 F Pulse Rate [Pulse Oximeter] 110 H 97 86 Respiratory Rate 16 16 16 Blood Pressure [Le ft Arm] 125/75 115/71 Blood Pressure [Ri ght Arm] 99/68 Pulse Oximetry 98 97 98 Oxygen Delivery Me thod Room Air Room Air Documenting provider has reviewed patient's vital signs: yes OB - DS: Summary Hospital Course Hospital Course: Sylvia is a 34 y.o. G 8 P 3 who was admitted to [facility] for spontaneous onset of labor. ?She had a NVD that was uncomplicated. The patient feels well. ?The pain is well controlled with current medications. ?She has no new complaints. ?She is breast feeding and reports things are going well. the patient has done well.? Vitals have been stable.? She has remained afebrile.? Has a good appetite, is tolerating a general diet. ?She is voiding without difficulty.? She is passing gas and has had a bowel movement.? She is ambulating and denies any dizziness.? Has small amount of rubra lochia. Problems: Anemia Discharge home with baby.? Follow up in 2 weeks and 6 weeks.? , may see if needed? Hgb 9.1. Iron supplement ordered orally every other day? For pain control of perineum, breast and pelvic pain, take 600 mg Ibuprofen every 6 hours as needed by mouth or 1000 mg acetaminophen (Tylenol) every 6 hours by mouth as needed. You can alternate these so you are taking something every 3 hours as needed. A heating pad can also be used for your abdomen or breasts. You may also take docusate sodium up to twice daily to soften your stools and help to prevent constipation. You may wean off of it when your stools return to normal.? Peripartum Data Infant delivery method: Vaginal Laceration description: None complications: none [place] Gender: Female Infant Discharge Plan: Home Status at Discharge Functional status at discharge: independent ambulation Overall status at discharge: patient is progressing back to baseline Time Spent with Patient Time attestation: Total time spent providing and/or coordinating discharge services: Time spent: Less than 30 minutes Discharge Plan Discharge Disposition: Home, Self-Care Date of Admission: 02/12/25 19:27 Attending Provider on Discharge: Pippa Brown Primary Care Provider: Provider,Not a Local Condition: Stable Anticipated Discharge Date/Time: 02/14/25 12:00 Discharge Medications: New docusate sodium 100 mg Capsule 100 mg PO DAILY Qty: 90 0RF ferrous sulfate 325 mg (65 mg iron) Tablet 325 mg PO Q48H Qty: 60 0RF ibuprofen 600 mg Tablet 600 mg PO Q6H PRNQty: 60 0RF acetaminophen 500 mg Tablet 1,000 mg PO Q6H PRNQty: 0 0RF Continued DHA 200 mg capsule 200 mg PO DAILY Discontinued aspirin 81 mg tablet,chewable 81 mg PO QDAY Discharge Orders: Discharge Order (Routine); Ordered 02/14/25 Ordered By: Pippa Brown Patient Education: OB Over the Counter Medication Information, OB Vaginal/Breast Feeding Additional Instructions: Discharge instructions were reviewed with the patient including signs and sympto ms of infection and home going medications Nothing vaginally for 6 weeks: no tampons or intercourse Off Work or School for 6 weeks 2-week visit: discuss feeding concerns, review control options and screen for anxiety/depression. 6-week visit for an annual exam. consultation services are available to all mothers and babies for the first year after delivery.? To make an appointment, please call [phone]. Activity Level: Activity as Tolerated Discharge Diet: Regular Follow Up Appointments: [facility] [Provider Group] Forms: [employer] (formerly [employer])th Info Instructions
[2025-02-14 09:00] VITALS: BP 124/82; PULSE 80; RESP 16; TEMP 36.8; O2SAT 98
== END 2025-02-14 12:20 | disposition home or self-care (01) | DRG 560 ==
LOC: OB OUT 19:27 → OB 19:27
PROVIDERS: Admitting Provider Advanced Practice Midwife; Visit Provider Advanced Practice Midwife
DX: O48.0 Post-term pregnancy (principal); O99.344 Other mental disorders complicating childbirth; F41.1 Generalized anxiety disorder; O90.81 Anemia of the puerperium; D64.9 Anemia, unspecified; Z37.0 Single live birth; Z3A.40 40 weeks gestation of pregnancy
CPT/HCPCS: 36415; 84112; 85018; 86592; A9270; J7120